=== PATIENT | female | born 1980 | race Caucasian/White ===

== ENCOUNTER 2017-02-21 08:31 | Emergency (ER) | payer BC, OTHER | END 2017-02-21 10:08 | disposition home or self-care (01) | LOC: ER 08:31 | DX: L25.9 Unspecified contact dermatitis, unspecified cause (principal); J06.9 Acute upper respiratory infection, unspecified; Z98.84 Bariatric surgery status; E89.0 Postprocedural hypothyroidism; Z79.899 Other long term (current) drug therapy; Z88.6 Allergy status to analgesic agent ==